=== PATIENT | female | born 1995 | race Two or more races ===

== ENCOUNTER 2023-05-09 01:59 | Emergency (ER) | payer OTHER ==
[~2023-05-09] VITALS: Ht 165.1 cm; Wt 56.7 kg
[2023-05-09 03:36] LABS: HEMATOCRIT 41.6 % (36.0-45.00); HEMOGLOBIN 14.2 g/dL (12.0-15.00); MEAN CELL VOLUME 91.3 fL (80.00-100.00); MEAN CORPUSCULAR HEMOGLOBIN 31.3 pg (27.00-32.0); MEAN CORPUSCULAR HGB CONC 34.2 g/dl (32.0-36.0); PLATELET COUNT 313 K/uL (150-450); RED BLOOD COUNT 4.56 M/uL (4.00-6.00); RED CELL DISTRIBUTION WIDTH 12.8 % (11.5-14.5)
[2023-05-09 04:15] LABS: ANION GAP 11 (10.0-20.0); BLOOD UREA NITROGEN 13 mg/dL (7-18); BUN CREA RATIO 18 (7.0-25.0); CALCIUM 9.4 mg/dL (8.5-10.1); CARBON DIOXIDE 25 mEq/L (21-32); CHLORIDE 105 mmol/L (98-107); CREATININE SERUM 0.72 mg/dL (0.55-1.02); GFR 96.45; GLUCOSE FASTING 126 mg/dL (65-100); OSMOLALITY SERUM 277 MOSM/KG (275-295); POTASSIUM 3.34 mEq/L (3.5-5.1); SODIUM 138 mmol/L (136-145)
[2023-05-09 04:19] LABS: HCG QUANTITATIVE < 1 mUI/mL (1-3)
[2023-05-09 09:30] LABS: PH,URINE 6.5 (5.0-8.0); URINE APPEARANCE Cloudy; URINE BILIRRUBIN Negative (NEGATIVE); URINE BLOOD Large; URINE COLOR Dark Yellow; URINE GLUCOSE Negative (NEGATIVE); URINE LEUKOCYTE Trace; URINE NITRATE Negative; URINE UROBILINOGEN 0.2 E.U./dl
[2023-05-09 09:37] LABS: URINE BACTERIA 2114.1 uL (0.0-1933); URINE EPITHELIAL CELLS 47.9 uL (0.0-38.8); URINE RBC 155.3 uL (0.0-20.8); URINE WBC 123.2 uL (0.0-23.2)
[2023-05-09 09:43] LABS: URINE PROTEIN 100 (NEGATIVE)
== END 2023-05-09 11:16 | disposition home or self-care (01) ==
LOC: ER 02:00
PROVIDERS: General Practice
DX: R10.84 Generalized abdominal pain (principal); Z91.013 Allergy to seafood; Z91.018 Allergy to other foods